=== PATIENT | female | born 1970 | race Caucasian/White ===

== ENCOUNTER 2017-03-01 21:26 | Emergency (ER) | payer OTHER ==
[~2017-03-01] VITALS: Ht 172.7 cm; Wt 98.2 kg
[2017-03-01 21:30] VITALS: BP 161/83; PULSE 67; RESP 12; O2SAT 98
--- NOTE | 2017-03-01 22:23 | ED.REPORT ---
HPI-Psychiatric Illness Date of Service Mar 01, 2017 ED Provider: Lance Saxena MD A 46 year old female with a history of depression, heart murmur, HSV and a previous suicide attempt three years ago presents to the ED complaining of feeling overwhelmed. She has been experiencing multiple stressors recently including a fallout with her family and recently becoming homeless. She is unable to sleep well and now cannot stop shaking. She has also been anxious and having thoughts of suicide. The pt is employed and has been seeing a counsellor once a week. Her last meeting with her counsellor was today. Nursing Notes Stated Complaint: OVERWHELMED,CANT STOP SHAKING & CRYING Chief Complaint: Psychiatric Complaint Nursing Notes Reviewed: Yes Allergies: Coded Allergies: No Known Allergies (Unverified , 03/01/17) General Time Seen by MD: 22:21 Chief Complaint Other (Feeling overwhelmed) Hx Obtained From: Patient Arrived By: Walk-in Symptom Duration: Since onset Recent Healthcare: No recent hospitalization Risk-Psychiatric Illness Suicide Risk Stratification Suicide Risk Factors - Adult: : Previous attemptNo: Prior psych admission RF Statements: Risk factors reviewed Past Medical History Past Medical History anxiety depression heart murmur HSV previous suicide attempt 2014 Past Surgical History none reported Smoking History Unknown if Ever Smoker Social History Alcohol Use: "Social" Drug Use: THC Ambulatory Status Independent Review of Systems Respiratory: Denies: Non-productive cough, Shortness of breath Cardiovascular: Denies: Chest pain GI: Denies: Abdominal pain Skin: Denies Rash Neurologic: Reports: Shaking Psychiatric: Reports: Depression, Stress, Suicidal ideation Complete sys rev & neg: except as marked. Physical Exam Initial Vital Signs Vital Signs (First) Date Time Temp Pulse Resp B/P Pulse Ox O2 Delivery O2 Flow Rate FiO2 03/01/17 21:30 36.6 67 12 161/83 98 Room Air Initial VS: Reviewed, Vital signs normal General/Constitutional: Awake, Alert poor hygiene Neurologic: Oriented X3, Speech NL, No motor deficits, No sensory deficits Psychiatric: Not homicidal, Cognitive function NL Abnormal Mood/Affect: Positive: Depressed, Flat affect Head / Eyes: Atraumatic, Normocephalic, PERRL, EOMI ENT: Atraumatic, Airway patent, Mucous membranes moist Respiratory / Chest: Atraumatic, Breath sounds NL, Breath sounds = bilat, No respiratory distress Cardiovascular: Heart rate NL, Regular rhythm, Heart sounds NL Abdomen: Atraumatic, Soft, Non-tender Skin: Atraumatic, Color NL, No rash, Warm, Dry Neck: Atraumatic, Supple, Full range of motion Back: Atraumatic, Full range of motion Upper Extremity / MS: Atraumatic, Full range of motion Lower Extremity / Pelvis / MS: Atraumatic, Full range of motion bilateral ankle edema Interpretation & Diagnostics Lab Results Interpretation Result Diagram: 03/01/17 2255 03/01/17 2255 Test 03/01/17 22:07 03/01/17 22:55 03/01/17 23:01 Hold Urine Received (Received) White Blood Count 4.5th/mm3 (3.8-10.1) Red Blood Count 4.31mil/mm3 (3.90-5.20) Hemoglobin 12.5g/dL (12.0-15.6) Hematocrit 34.4% (35.0-46.0) Mean Corpuscular Volume 79.8fL (81-100) Mean Corpuscular Hemoglobin 29.0pg (27.0-35.0) Mean Corpuscular Hemoglobin Concent 36.3% (32.0-37.0) Red Cell Distribution Width 13.2% (12.3-15.4) Platelet Count 289bil/L (150-400) Neutrophils (%) (Auto) 51.8% (40-74) Lymphocytes (%) (Auto) 38.2% (14-46) Monocytes (%) (Auto) 8.5% (4-12) Eosinophils (%) (Auto) 1.1% (0-5) Basophils (%) (Auto) 0.4% (0-3) Sodium Level 141mEq/L (134-144) Potassium Level 3.7mEq/L (3.5-5.2) Chloride Level 106mEq/L (97-108) Carbon Dioxide Level 22mmol/L (18-29) Blood Urea Nitrogen 16mg/dL (6-24) Creatinine 0.52mg/dL (0.57-1.00) Estimat Glomerular Filtration Rate 181mL/min (>59) Glucose Level 102mg/dL (60-99) Calcium Level 9.4mg/dL (8.5-10.1) Total Bilirubin 0.3mg/dL (0.0-1.2) Aspartate Amino Transf (AST/SGOT) 15U/L (0-50) Alanine Aminotransferase (ALT/SGPT) 12U/L (0-32) Alkaline Phosphatase 52U/L (25-150) Total Protein 6.8g/dL (6.4-8.4) Albumin 4.0g/dL (3.4-5.0) Thyroid Stimulating Hormone (TSH) 1.590uIU/mL (0.450-4.500) Hold Pittman Top Tube Received (Received) Lab values outside NL range: no clinical significance. Re-Eval/Medical Decision Med Decision/Clinical Course 46-year-old female with significant situational depression related to family issues, homelessness, and financial problems. She is suicidal but agrees to a safe while pending voluntary evaluation. Medical screening exam was done and her care is now being turned over at change of shift to Dr. Sánchez while awaiting voluntary mental health evaluation. Re-Evaluation/Progress #1: Time of Eval: 22:21 Patient Status: Condition improved Re-Evaluation/Progress Note: Pt informed of the plan for social work consultation in the morning during the initial interview. The pt understands and agrees with the plan. All questions are addressed at this time. Re-Evaluation/Progress #2: Time of Eval: 04:32 Re-Evaluation/Progress Note: Pt rechecked, who is sleeping. Pt is stable at this time. Counseled Regarding: Diagnosis, Lab results Discharge & Departure Shift Change Sign-Out Patient Care Transferred: Yes Discussed Complaint(s): Yes Laboratory Evaluation: Lab evaluation discussed Impression: Primary Impression: Acute situational disturbance Discharge Condition All VS Reviewed: Yes Condition: Stable Referrals: Shruthi Whitmore (PCP) Care Transferred to: Dr. Sánchez Care Transferred at: 06:00 Scribe Attestation Portions of this note were transcribed by Damaso Sung. I, Dr. Saxena personally performed the history, physical exam and medical decision-making; I reviewed and confirmed the accuracy of the information in the transcribed note. copies to: Shruthi Whitmore Howard L MD Mar 01, 2017 22:22 DAMASO SUNG Mar 01, 2017 22:30
[2017-03-01] MEDS ORDERED: LORazepam 1 mg Tablet PO ONE (22:40)
[2017-03-01 23:07] LABS: BASOPHILS % (AUTO) 0.4 % (0-3); EOSINOPHILS % (AUTO) 1.1 % (0-5); MONOCYTES % (AUTO) 8.5 % (4-12); Mean Corpuscular Volume 79.8 fL (81-100); NEUTROPHILS % (AUTO) 51.8 % (40-74); Platelet Count 289 bil/L (150-400)
[2017-03-02 12:17] VITALS: BP 136/83; PULSE 72
--- NOTE | 2017-03-02 12:40 | NUR ---
ED DENTAL RESIDENT Note: Mental Health Evaluation Rivka Guerrero 03/02/2017 Reason for Hospital Visit: "Overwhelmed", "unable to stop shaking" Precipitating Problem: Pt is a 46 year old female who presented to the ED last night on 03/01/2017, feeling overwhelmed due to resent stressors with physical symptoms displaying as constant shakiness and inability to calm herself. DENTAL RESIDENT consult requested upon admission. DENTAL RESIDENT reviewed RN notes from overnight which explained that pt agreed to not harm herself while in the hospital and denied any thoughts of harming herself. DENTAL RESIDENT met with pt at bedside. Pt explained that after a good nights sleep she is feeling better this morning. Pt states that she had not slept well the two nights prior to her ED admission. Pt explained that she has been homeless for the last two months after her mother moved to [place] and her brother locked her out of the house their mother is trying to sell. Pt has been staying on the property in the yard and in a car a friend is letting her borrow. Pt youngest child (13 years old) was sent to live with her brother in [place] and she misses him very much. Pt sates that she got into an argument with her brother yesterday, she began to feel hopeless that her lost cat would not ever come home and in addition to these stressors she was told by her friend that she would need to return the care she had been borrowing. Pt states that she began to feel like she "wanted to disappear." Pt states she has had fleeting suicidal thoughts off and on the last couple of days but she was able to "shut those thoughts off." Pt denies any current suicidal ideation. Pt states her depression was stable for most of her adulthood, but when she and her family moved to [place] three years ago, her symptoms got worse. This states she is trying to move to [place] and is hopeful for this life change. 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 Pt is holding out on moving until March in order to utilize vacation time from work and also because her only other child (17 years old and living with her friends family at this time) begins [employer] in March. Pt is well connected in the [employer] Community and goes to local [employer] weekly which is also a positive support for her. Pt states she is in contact with her old rabbi in [place] who is helping with her transition to move. 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 Mental Status: Pt is alert and fully oriented, pt affect is coherent. Pt describes her mood as "overwhelmed, still sad." Pt denies any suicidal ideation at this time. Pt denies any thoughts of harming herself or others. Pt denies any plan. Pt denies any visual or auditory hallucinations. Pt does not appear to be responding to any internal stimuli. Pt makes appropriate eye contact. Pt speech is normal. Pt thought process is logical and linear. Pt attention is focused and in tact. Pt insight and judgement are good. Pt is goal oriented and motivated to keep her job and move to [place] in March. Psychiatric History: MIS check with the [facility] completed. Pt does not have any hx of inpt hospitalizations. Pt did self report a suicide attempt when she was 16 years old when she took " a bunch of my parents pills-muscle relaxers until I began to experience chest pain and I called a friend." Pt denies developing any other plans in her lifetime to attempt suicide as "everything would be too painful and I don't want to leave that legacy for my kids." Pt is open with [facility] and sees Clinician Blank Santiago and last saw her yesterday 03/01/2017. Pt states this was helpful and she was able to identify that "the most important thing I needed was sleep." However pt continued to feel more and more overwhelmed and called the crisis line and then reported to the ED. DENTAL RESIDENT attempted to contact her clinician at [facility], however per dental office receptionist, Blank Santiago does not work today. Pt does have an appointment on Sunday at 1:45p.m. Pt also has a hx of other outpt tx and counseling in [place] where she is originally from. Pt is taking Wellbutrin, Venlafaxine and amitriptyline which she has been stable on for the last year but pt states sometimes she feels that they are not a effective when she has major stressors in her life. Pt medications were started and managed by Shruthi KRAUS within [facility]. Legal hx/assault/violence: Pt denies any hx. Diagnosis: Per [facility]- F33.1 Major depressive disorder, recurrent, moderate Disposition/Plan: Now that pt has had a good nights rest and was able to talk to her sister in Law in [place], pt is feeling better this morning. Pt is not appropriate for inpt hospitalization or crisis respite at this time as she denies any suicidal ideation, thoughts of harming herself or others, or a plan. Pt is agreeable to follow up appointment with her PCP and clinician through [facility] and a check in phone call on Sunday and Sunday through the [facility]. Pt has follow up apt at [facility] with her clinician Blank Howard at 2:00p.m. on Sunday03/05/2017. DENTAL RESIDENT attempted to acquire a PCP follow up appointment with Shruthi Whitmore but her office will have to look at the scheduling and call back pt with soonest available appointment to look at her medications and dosages. DENTAL RESIDENT contacted the [facility] and requested check in phone calls tomorrow (Sunday03/03/2017 and Sunday03/04/2017 at noon-1200). Pt agreed to contact her sister in law who lives in [place] for extra support, call the crisis line again or report to the ED if needed if she starts to feel so overwhelmed Again that she feels unsafe or if she begins to experience suicidal ideation. Crisis line phone number provided. Extra community resource information including food berumen and financial market dealer information provided. Pt states that she is able to leave the ED today and be discharged back into the community and keep herself safe. Pt is agreeable to plan and agreed to follow up with the A and her providers. Pt denies any other needs. MD and RN notified. All updated and agreeable to plan. ALEXA Manriquez
== END 2017-03-02 12:18 | disposition home or self-care (01) ==
LOC: SED 21:26
DX: F43.0 Acute stress reaction (principal)